=== PATIENT | male | born 1995 | race Caucasian/White ===

== ENCOUNTER 2017-02-16 16:44 | Emergency (ER) | payer BC ==
[~2017-02-16] VITALS: Ht 175.3 cm; Wt 89.0 kg
[2017-02-16 16:47] VITALS: Ht 175.3 cm; Wt 89.0 kg
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
[2017-02-16] MEDS ORDERED: ACET500C5 PO (20:02)
[2017-02-16 20:20] VITALS: BP 157/86; PULSE 89; RESP 20; TEMP 98
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
== END 2017-02-16 20:20 | disposition home or self-care (01) ==
LOC: FTE 16:44
DX: S29.001A Unspecified injury of muscle and tendon of front wall of thorax, initial encounter (principal); R07.89 Other chest pain; V89.2XXA Person injured in unspecified motor-vehicle accident, traffic, initial encounter
CPT/HCPCS: 71020